=== PATIENT | female | born 1980 | race Hispanic/Latino ===

== ENCOUNTER 2016-09-30 20:00 | Emergency (ER) | payer MEDICAID, OTHER ==
[2016-09-30 20:01] VITALS: BMI 42.2
[2016-09-30 20:08] VITALS: O2SAT 98
--- NOTE | 2016-09-30 20:41 | ED PDOC ---
HPI: Chest Pain Time Seen by Provider: 09/30/16 20:13 Chief Complaint (Nursing): Abdominal Pain Chief Complaint (Provider): chest pain History Per: Patient Onset/Duration Of Symptoms: Days (3), Gradual, Persistent Quality: Tightness, "Pain" Associated Symptoms: denies: Nausea, Dyspnea, Diaphoresis, Syncope Additional Complaint(s): Initially started as a headache on left side which she thought was a migraine and took advil with some relief. Then developed into pain in chest radiating to LEFT arm and LEFT epigastric area. Reports a similar problem in the past and was told it was anxiety, improved with valium. Denies any increased stress but has been having less sleep than usual because her children are home for summer vacation. No leg swelling. No cough. No focal weakness PMD Dr Michaela Nelson Past Medical History Reviewed: Historical Data, Nursing Documentation, Vital Signs Vital Signs: Last Vital Signs Temp 99.0 F 09/30/16 20:02 Pulse 129 H 09/30/16 20:02 Resp 16 09/30/16 20:02 BP 142/83 09/30/16 20:02 Pulse Ox 98 09/30/16 20:43 - Medical History PMH: Anxiety, GERD - Surgical History Surgical History: Appendectomy, Cholecystectomy, Tonsillectomy - Family History Family History: States: Diabetes (father), Hypertension - Social History Current smoker - smoking cessation education provided: Yes Alcohol: None - Immunization History Hx Tetanus Toxoid Vaccination: Yes - Home Medications Home Medications: Ambulatory Orders Medication Instructions Recorded LORazepam [Ativan] 0.5 mg PO BID PRN #14 tab 05/11/15 Ibuprofen [Motrin Tab] 1 tab PO TID PRN #30 tab 01/29/16 Sucralfate [Carafate Tab] 1 gm PO Q6 PRN #30 tab 09/30/16 - Allergies Allergies/Adverse Reactions: Allergies Allergy/AdvReac Type Severity Reaction Status Date / Time No Known Allergies Allergy Verified 09/30/16 20:02 Review of Systems ROS Statement: Except As Marked, All Systems Reviewed And Found Negative (and as per HPI) Constitutional: Positive for: Sweats, Malaise Cardiovascular: Positive for: Chest Pain, Palpitations, Light Headedness Respiratory: Negative for: Shortness of Breath Gastrointestinal: Positive for: Nausea, Abdominal Pain. Negative for: Diarrhea , Constipation, Melena Musculoskeletal: Positive for: Neck Pain Neurological: Positive for: Headache. Negative for: Weakness, Numbness Psych: Positive for: Anxiety. Negative for: Psychosis, Suicidal ideation Physical Exam - Reviewed Nursing Documentation Reviewed: Yes Vital Signs Reviewed: Yes - Physical Exam Appears: Positive for: Non-toxic, In Acute Distress Head Exam: Positive for: ATRAUMATIC, NORMOCEPHALIC Skin: Positive for: Warm, Dry Eye Exam: Positive for: EOMI, PERRL ENT: Positive for: Pharynx Is (clear), Other (dry muc membranes) Neck: Positive for: Painless ROM, Supple Cardiovascular/Chest: Positive for: Chest Non Tender, Tachycardia (reg rhythm). Negative for: Murmur Respiratory: Positive for: Normal Breath Sounds. Negative for: Rales, Rhonchi, Wheezing, Respiratory Distress Gastrointestinal/Abdominal: Positive for: Soft. Negative for: Tenderness Back: Positive for: Normal Inspection. Negative for: Decreased ROM Extremity: Positive for: Normal ROM. Negative for: Pedal Edema, Calf Tenderness , Deformity Lymphatic: Negative for: Adenopathy Neurologic/Psych: Positive for: Alert. Negative for: Motor/Sensory Deficits - Laboratory Results Result Diagrams: 09/30/16 20:45 09/30/16 20:45 Interpretation Of Abn Labs: Labs unremarkable - ECG O2 Sat by Pulse Oximetry: 98 - Progress ED Course And Treament: Initially improvement of chest pain with toradol and flexeril. However she reports continued "burning" sensation in abdomen. This improved with mylanta and lidocaine. Disposition - Clinical Impression Clinical Impression: Abdominal pain Counseled Patient/Family Regarding: Studies Performed, Diagnosis, Need For Followup, Rx Given, Smoking Cessation - Disposition Referrals: Chelle Jennings MD [Staff Provider] - Jim Puckett MD, PhD [Staff Provider] - Disposition: Routine/Home Disposition Time: 23:00 Condition: IMPROVED Additional Instructions: BLAND DIET FOLLOW UP WITH REMA TO DISCUSS POSSIBLE EVALUATION BY GASTROENTEROLOGY RETURN TO ER FOR WORSENING SYMPTOMS Prescriptions: Sucralfate [Carafate Tab] 1 gm PO Q6 PRN #30 tab PRN Reason: ABDOMINAL PAIN Instructions: Epigastric Pain (ED), Diet for Ulcers and Gastritis (ED), How to Stop Smoking (ED) Forms: [employer] ED School/Work Excuse
[2016-09-30 21:02] LABS: BASO # 0.1 K/uL (0.0-0.2); BASO % 0.9 % (0.0-2.0); EOS # 0.1 K/uL (0.0-0.7); EOS % 1.6 % (0.0-4.0); LYMPH # 2.7 K/uL (1.0-4.3); LYMPH % 29.8 % (20.0-40.0); MEAN CELL VOLUME 85.2 fl (81.0-99.0); MEAN CORPUSCULAR HEMOGLOBIN 28.7 pg (27.0-31.0); MEAN CORPUSCULAR HGB CONC 33.6 g/dL (33.0-37.0); MEAN PLATELET VOLUME 7.9 fl (7.2-11.7); MONO # 0.6 K/uL (0.0-0.8); MONO % 6.5 % (0.0-10.0); NEUT # 5.6 K/uL (1.8-7.0); NEUT % 61.2 % (50.0-75.0); RED CELL DISTRIBUTION WIDTH 13.4 % (11.5-14.5); WHITE BLOOD COUNT 9.1 K/uL (4.8-10.8)
[2016-09-30 21:16] LABS: ALB/GLOB RATIO 1.5 (1.0-2.1); ALCOHOL SERUM < 10 mg/dl (0-10); ALKALINE PHOSPHATASE 56 U/L (38-126); ALT/SGPT 44 U/L (9-52); AST/SGOT 19 U/L (14-36); BILIRUBIN,TOTAL 0.4 mg/dl (0.2-1.3); BLOOD UREA NITROGEN 14 mg/dl (7-17); CALCIUM 9.5 mg/dL (8.4-10.2); CARBON DIOXIDE 23 mmol/L (22-30); CHLORIDE 104 mmol/L (98-107); GFR AFRICAN-AMERICAN > 60; GLUCOSE,RANDOM 132 mg/dL (65-105); MAGNESIUM 1.7 MG/DL (1.6-2.3); PHOSPHOROUS 2.8 mg/dl (2.5-4.5); POTASSIUM 3.6 MMOL/L (3.6-5.0); SODIUM 138 mmol/l (132-148); TOTAL PROTEIN 7.3 G/DL (6.3-8.2)
[2016-09-30 22:01] LABS: THYROID STIMULATING HORMONE 3.93 mIU/ML (0.46-4.68)
[2016-09-30] MEDS ORDERED: Alum-Mag Hydrox-Simethicone Susp (30 mL) PO ONE (22:27)
[2016-09-30] MEDS ORDERED: Atrop/Hyos/Scop/PhenoB Elixir PO STA (22:28)
[2016-09-30] MEDS ORDERED: Alum-Mag Hydrox-Simethicone Susp (30 mL) ONE (22:52)
[2016-09-30] MEDS ORDERED: Sodium Chloride 0.9% 1,000 ML IV STA (23:00)
[2016-09-30 23:38] VITALS: BP 138/73; PULSE 95; RESP 12; TEMP 98.6
--- NOTE | 2016-10-01 12:59 | RAD ---
HISTORY: chest pain COMPARISON: Chest radiographs 05/11/2015. TECHNIQUE: Chest PA and lateral FINDINGS: LUNGS: No active pulmonary disease. PLEURA: No significant pleural effusion identified. No pneumothorax apparent. CARDIOVASCULAR: Normal. OSSEOUS STRUCTURES: No significant abnormalities. VISUALIZED UPPER ABDOMEN: Normal. OTHER FINDINGS: None. IMPRESSION: No acute cardiopulmonary disease appreciated or significant change 05/11/2015. .
== END 2016-09-30 23:38 | disposition home or self-care (01) ==
LOC: H.ER 20:00
DX: R10.13 Epigastric pain (principal); F41.9 Anxiety disorder, unspecified; K29.70 Gastritis, unspecified, without bleeding